=== PATIENT | male | born 1995 | race Hispanic/Latino ===

== ENCOUNTER 2018-01-16 12:04 | Emergency (ER) | payer SELFPAY ==
[2018-01-16] MEDS ORDERED: HYDROCODONE/ACETAMINOPHEN 5/325 MG TAB ONE (12:22)
[2018-01-16] MEDS ORDERED: KETOROLAC TROMETHAMINE 60 MG/2 ML VIAL ONE (12:22)
== END 2018-01-16 15:55 | disposition home or self-care (01) ==
LOC: EDH 12:04
DX: S63.591A Other specified sprain of right wrist, initial encounter (principal); S80.812A Abrasion, left lower leg, initial encounter; M25.521 Pain in right elbow; Z88.0 Allergy status to penicillin; Z72.0 Tobacco use; W18.39XA Other fall on same level, initial encounter; Y93.39 Activity, other involving climbing, rappelling and jumping off; Y92.098 Other place in other non-institutional residence as the place of occurrence of the external cause; Y99.8 Other external cause status
CPT/HCPCS: 29125; 73070; 73110; 73200; 96372; 99284; J1885